=== PATIENT | female | born 1960 | race Caucasian/White ===

== ENCOUNTER 2025-07-20 09:59 | Outpatient (CLI) | payer OTHER | END 2025-07-20 10:00 | disposition home or self-care (01) | LOC: CSHDTY/OP 09:59 | PROVIDERS: ATTEND Nurse Practitioner Family | DX: Z71.3 Dietary counseling and surveillance (principal) | CPT/HCPCS: 97802 ==

== ENCOUNTER 2025-09-15 10:00 | Outpatient (CLI) | payer OTHER | END 2025-09-15 10:01 | disposition home or self-care (01) | LOC: CSHDTY/OP 10:00 | PROVIDERS: ATTEND Nurse Practitioner Family | DX: Z71.3 Dietary counseling and surveillance (principal) | CPT/HCPCS: 97802 ==